=== PATIENT | male | born 1985 | race African-American/Black ===

== ENCOUNTER 2016-10-16 21:59 | Emergency (ER) | payer OTHER ==
[~2016-10-16] VITALS: Ht 175.3 cm; Wt 68.0 kg
[~2016-10-16 21:59] MED LIST: IBUPROFEN 600600 M1 PO; NORCO 5-325 TA1 EACH PO
[2016-10-16] MEDS ORDERED: IBUPROFEN 600600 M1 PO (23:21)
[2016-10-16] MEDS ORDERED: HYDROCODONE-AP1 EAC6 PO (23:21)
[2016-10-16] MEDS ORDERED: KEFLEX500 MG PO (23:40)
[2016-10-16 23:46] VITALS: BP 147/78
== END 2016-10-16 23:47 | disposition home or self-care (01) ==
LOC: ER 21:59
DX: S92.352A Displaced fracture of fifth metatarsal bone, left foot, initial encounter for closed fracture (principal); F17.210 Nicotine dependence, cigarettes, uncomplicated; F10.99 Alcohol use, unspecified with unspecified alcohol-induced disorder; X58.XXXA Exposure to other specified factors, initial encounter; Y93.67 Activity, basketball; Y92.310 Basketball court as the place of occurrence of the external cause; Y99.8 Other external cause status